=== PATIENT | female | born 1995 | race Asian ===

== ENCOUNTER 2018-08-19 22:07 | Emergency (ER) | payer OTHER ==
[~2018-08-19] VITALS: Ht 152.4 cm; Wt 84.0 kg
[2018-08-20 06:17] VITALS: BP 123/68
== END 2018-08-20 06:19 | disposition home or self-care (01) ==
LOC: ER 22:07
DX: S70.02XA Contusion of left hip, initial encounter (principal); S80.11XA Contusion of right lower leg, initial encounter; S00.531A Contusion of lip, initial encounter; V89.0XXA Person injured in unspecified motor-vehicle accident, nontraffic, initial encounter; Y93.89 Activity, other specified; Y92.89 Other specified places as the place of occurrence of the external cause; Y99.8 Other external cause status
CPT/HCPCS: 70160; 72170; 73590; 99283; Z7610